=== PATIENT | female | born 1990 | race Caucasian/White ===

== ENCOUNTER → 2021-06-11 15:23 | Outpatient (CLI) | payer OTHER, SELFPAY ==
--- NOTE | ~2021-06-11 | XR_ITS ---
XR knee LT 3V DATE: 06/11/2021 15:41 INDICATION: Left knee pain TECHNIQUE: [place] and standing AP and lateral views COMPARISON: None FINDINGS: No fracture or dislocation or joint effusion. Joint spaces appear well preserved. No radiop aque intra-articular loose body or chondrocalcinosis. No periosteal reaction or bone destruction. IMPRESSION: No significant abnormality Reviewed, dictated and finalized at location B. IMPRESSION: No significant abnormality
== END ==
PROVIDERS: PCP Family Medicine; Visit Provider Nurse Practitioner Family
DX: M25.562 Pain in left knee (principal)
CPT/HCPCS: 73562

== ENCOUNTER → 2021-08-26 03:38 | Outpatient (CLI) | payer OTHER, SELFPAY ==
[2021-08-27 17:42] LABS: SARS-CoV-2 RNA PCR Negative
== END ==
PROVIDERS: PCP Family Medicine; Visit Provider Student in an Organized Health Care Education/Training Program
DX: Z01.812 Encounter for preprocedural laboratory examination (principal); Z20.822 Contact with and (suspected) exposure to COVID-19
CPT/HCPCS: C9803; U0003; U0005

== ENCOUNTER 2021-08-26 08:21 | Outpatient (CLI) | payer OTHER, SELFPAY ==
[2021-08-26 09:10] LABS: Hematocrit 39.6 % (37.0-47.0); Hemoglobin 12.7 g/dL (12.0-15.0)
== END 2021-08-26 08:22 | disposition home or self-care (01) ==
PROVIDERS: PCP Family Medicine; Visit Provider Student in an Organized Health Care Education/Training Program
DX: Z01.818 Encounter for other preprocedural examination (principal); O02.1 Missed abortion
CPT/HCPCS: 36415; 85014; 85018; 86900; 86901

== ENCOUNTER 2021-08-28 00:38 | Day surgery (SDC) | payer OTHER, SELFPAY ==
[2021-08-25 13:40] VITALS: BMI 47.3
--- NOTE | 2021-08-27 12:33 | PM.IMHP ---
H&P: HPI History of Present Illness Date/Time: 08/27/21 12:33 Chief Complaint: missed Narrative: 30 yo who presents for suction D&C for missed . Pt initially has a positive test in early July. Pt was previously seen by another OB who obtained Beta-HCG levels and a pelvic US. US showed a intrauterine GS with no YS or pole. Repeat US 2 wks later showed no interval growth and no embryo. Pt then presented to our office for a second opinion. Pelvic US was repeated and showed no interval change. Decision was then made to proceed with surgical management. Review of Systems Cardiovascular: Cardiovascular: Denies chest pain, Denies leg edema, Denies palpitations, Denies dyspnea and Denies dyspnea on exertion Respiratory: Respiratory: Denies cough, Denies dyspnea and Denies dyspnea on exertion Gastrointestinal: Gastrointestinal: Denies abdominal pain, Denies constipation, Denies diarrhea, Denies nausea and Denies vomiting Genitourinary: Genitourinary: Denies hematuria, Denies urinary frequency, Denies dysuria, Denies pelvic pain, Denies urinary incontinence and Denies vaginal discharge Neurologic: Reports system reviewed and no additional complaints, except as documented Psychiatric: Psychiatric: Reports no additional psychiatric complaints Endocrine: Endocrine: Denies palpitations PMFSH Past Medical History Medical History BMI 45.0-49.9, adult BMI greater than 40 Family History Family History Grandparent Family history of pancreatic cancer Other Diabetes mellitus Family history of cardiovascular disease Social History Social History Smoking status: Never smoker Second hand tobacco smoke exposure: No Alcohol intake: current Substance use: never Substance use type: does not use Spiritual care concerns: No Meds Home Medications and Allergies Home Medications Medication Instructions Recorded Confirmed Type vit no.[id number] 1 tablet PO DAILY 08/25/21 08/25/21 History [ Vitamin] Allergies Allergy/AdvReac Type Severity Reaction Status Date / Time sumatriptan Allergy Intermediate Hives Verified 08/25/21 13:43 adhesive Allergy Mild Rash Verified 08/25/21 13:43 diphenhydramine Allergy Unknown Unknown Verified 08/25/21 13:43 Exam Const: General: no acute distress Eyes: EOM: EOMs intact bilaterally Neck: Neck: supple Thyroid: thyroid normal Chest: Breast/axilla inspection: normal inspection of the breasts Breast/axilla palpation: normal palpation of the breasts, normal palpation of the axillae and no axillary lymphadenopathy Resp: Effort & Inspection: normal respiratory effort Auscultation: clear to auscultation bilaterally Cardio: Rate: regular rate Rhythm: regular rhythm GI: Inspection: non-distended GI Palp: Yes Soft to palpation, No Tenderness to palpation present (GI) and No Guarding due to palpation present (GI) Auscultation: normal bowel sounds : General: No bladder normal to palpation External Female Exam: normal external appearance Speculum Exam - Vagina: normal vaginal discharge and No vaginal bleeding Speculum Exam - Cervix: nontender Bimanual exam- vagina & uterus: No bladder normal to palpation and No Cervical tenderness present OB/external & speculum: No vaginal bleeding Skin: General skin exam: normal color and no rashes or lesions noted Neuro: Cognition (Neuro): normal cognition Speech: normal speech Extrem: General: normal to inspection and no edema Psych: Mental Status: mental status grossly normal Affect: normal affect Assessment and Plan Assessment and plan (1) Spontaneous : Code(s): O03.9 - Complete or unspecified spontaneous without complication Status: Acute Assessment and Marika
--- NOTE | 2021-08-28 07:41 | WPDHPUPDATE1 ---
History and Physical Update Update Date/Time: 08/28/21 07:41 History and Physical has been reviewed, including an updated exam of the patient. There are NO changes in the patient's condition. Risks, benefits, and alternatives have been discussed and questions answered. Patient agrees to proceed with procedure.
[2021-08-28] MEDS: LACTATED RINGERS 1,000 ML 30 ML IV CONT (13:00)
[2021-08-28] MEDS: ACETAMINOPHEN 500 MG TABLET 1000 MG PO (13:04)
[2021-08-28 13:24] VITALS: BP 132/60; PULSE 83; RESP 18; TEMP 37.1; O2SAT 100
--- NOTE | 2021-08-28 13:54 | WPDANESEPPF ---
Anes - Initial Pre Proc Eval Procedure: Operation Date: 08/28/21 14:30 Proposed Procedures p Suction Dilatation and Curettage - Ryan Guajardo MD Date/Time: 08/28/21 13:54 Surgeon: Ryan Guajardo MD Pre Op Diagnosis: missed ab Patient Data Age: 30 Gender: F Height: 1.78 m Weight: 148 kg Last Vital Signs Temp 98.8 F 08/28/21 13:24 Pulse 83 08/28/21 13:24 Resp 18 08/28/21 13:24 BP 132/60 08/28/21 13:24 Pulse Ox 100 08/28/21 13:24 Allergies Allergy/AdvReac Type Severity Reaction Status Date / Time sumatriptan Allergy Intermediate Hives Verified 08/28/21 13:09 adhesive Allergy Mild Rash Verified 08/28/21 13:09 diphenhydramine Allergy Unknown Unknown Verified 08/28/21 13:09 Home Medications Medication Instructions Recorded Confirmed Type vit no.[id number] 1 tablet PO DAILY 08/25/21 08/28/21 History [ Vitamin] Patient hx anesthesia problems: none Family hx anesthesia problems: none Results Review: All pre-operative results and documents have been reviewed as part of the pre-operative evaluation. [facility] Past Medical History Medical History (Updated 08/28/21 @ 13:53 by Filipe Lombardo MD) BMI 45.0-49.9, adult BMI greater than 40 Hypothyroidism Mixed hyperlipidemia Family History Family History Grandparent Family history of pancreatic cancer Other Diabetes mellitus Family history of cardiovascular disease Social History Social History Smoking status: Never smoker Second hand tobacco smoke exposure: No Alcohol intake: current Substance use: never Substance use type: does not use Living arrangements: with family Spiritual care concerns: No Anes - Eval Final PreProcedure Day of Procedure 08/28/21 13:54 Patient weight: morbidly obese Heart: regular rate and rhythm Lungs: clear to auscultation Airway: Mallampati scale class III Neurological: alert and oriented Last oral intake: >/= 8 hours ASA classification: III Emergent: no Anesthetic plan: proceed Anesthesia type and monitoring: general GIVS (may use LMA if needed) and standard monitoring Results Review: All pre-operative results and documents have been reviewed as part of the pre-operative evaluation. Informed Consent: The patient's anesthetic plan and its attendant risks and benefits were discussed with the patient/family/POA. Questions were solicited and answers provided to the satisfaction of the patient/family/POA.
[2021-08-28] MEDS: LIDOCAINE HCL 1% PF 30 ML VIAL INFILTRATE (14:17)
[2021-08-28 14:35] VITALS: BP 136/103; PULSE 96; RESP 18; O2SAT 98
[2021-08-28 15:00] VITALS: BP 112/77; PULSE 88; RESP 16; O2SAT 97
--- NOTE | 2021-08-28 15:04 | W.PM.PROC2 ---
Procedure Note - Detailed Date of Procedure 08/28/21 Pre-op Diagnosis missed ab Post-op Diagnosis same Procedure Performed Suction Dilation & curettage Surgeon Ryan Guajardo MD Anesthesia MAC Indications spontaneous missed on pelvic US Findings intrauterine products of conception Description of Procedure The patient was taken to the operating room after a missed had been noted on on transvaginal ultrasound. The risks, benefits and alternatives of the procedure were reviewed with the patient and informed consent was obtained. The patient was taken to the OR and anesthesia was noted to be adequate. The patient was placed in the dorsolithotomy position. Pelvic exam was performed with findings noted above. The patient was prepped and draped in the usual sterile fashion. Sterile speculum was placed in the vagina and the cervix was grasped with a tenaculum. The cervix was dilated further to allow for passage of a 8 mm suction curette. The 8 mm suction curette was gently advanced to the fundus, suction was activated, and the tip was rotated while being withdrawn to clear the uterus of products. This suction process was repeated 3 additional times due to the quantity of material in the uterus. The sharp curette was introduced and advanced to the fundus to remove any remaining products. The suction curette was reintroduced one final time to ensure all products had been removed. The tenaculum was removed. Good hemostasis was noted. Instrument, sponge, and sharp counts were correct. Patient tolerated the procedure well and was taken to the recovery room in stable condition. Estimated Blood Loss 10 Urine Output 10 Drains No Packing No Pathology yes (products of conception ) Complications No immediate complications Condition stable Disposition PACU
== END 2021-08-28 15:30 | disposition home or self-care (01) ==
PROVIDERS: PCP Family Medicine; Visit Provider Student in an Organized Health Care Education/Training Program
PROC: (CPT 59820; principal; 2021-08-28 14:30)
DX: O02.1 Missed abortion (principal); E03.9 Hypothyroidism, unspecified; E78.2 Mixed hyperlipidemia; E66.01 Morbid (severe) obesity due to excess calories; Z68.42 Body mass index [BMI] 45.0-49.9, adult
CPT/HCPCS: 59820; 36415; 85014; 85018; 86900; 86901; 88305; A9270; C9803; J1100; J1170; J2250; J2405; J2704; J3010; J7120; U0003; U0005

== ENCOUNTER → 2022-08-13 08:17 | Outpatient (CLI) | payer OTHER, SELFPAY ==
--- NOTE | ~2022-08-13 | US_ITS ---
EXAMINATION: US abdomen complete DATE: 08/13/2022 08:38 INDICATION: Hepatic steatosis TECHNIQUE: Multiple grayscale and Doppler ultrasound images of the abdomen were obtained. COMPARISON: None FINDINGS: Normal spleen measuring 11.9 cm in maximal length. The visualized proximal to mid aorta and inferior vena cava are normal. The pancreatic head and body are normal in appearance. The pancreatic tail is not visualized. Liver has normal contour, with a smooth surface. There is increased parenchymal echog enicity with coarsened echotexture an poor acoustic penetration consistent with diffuse hepatic steat osis. No liver lesion identified. No intrahepatic biliary duct dilation suspected. Portal venous ovi w was seen in the hepatopetal, normal direction and has normal Doppler waveform. Gallbladder is no lo nger visualized at the gallbladder fossa likely surgically absent. Common bile duct measures 5 mm in maximal diameter which is normal. There is normal renal contour and echogenicity bilaterally. The rig ht kidney measures 11.5 x 5.3 x 4.7 cm and the left 11.3 x 4.9 x 6.1 cm. There are no focal renal le sions identified. There is no hydronephrosis. IMPRESSION: 1. Diffuse hepatic steatosis. Reviewed, dictated and finalized at location A.
== END ==
PROVIDERS: PCP Nurse Practitioner Family; Visit Provider Nurse Practitioner Family
DX: K76.0 Fatty (change of) liver, not elsewhere classified (principal)
CPT/HCPCS: 76700

== ENCOUNTER 2022-09-06 16:14 | Outpatient (CLI) | payer OTHER, SELFPAY ==
[2022-09-06 17:05] LABS: SARS-CoV-2 RNA PCR Negative (Negative)
== END 2022-09-06 16:15 | disposition home or self-care (01) ==
LOC: CHSLAB 16:17
PROVIDERS: PCP Family Medicine
DX: Z01.818 Encounter for other preprocedural examination (principal); Z20.822 Contact with and (suspected) exposure to COVID-19
CPT/HCPCS: U0003; U0005